=== PATIENT | female | born 1990 | race Hispanic/Latino ===

== ENCOUNTER 2021-05-08 08:05 | Outpatient (CLI) ==
[2021-05-09 09:27] LABS: SARS-CoV-2 PCR by NAA DETECTED (NotDetected)
== END 2021-05-08 08:06 | disposition home or self-care (01) ==
LOC: CSHLAB 08:05
PROVIDERS: ATTEND Family Medicine
DX: U07.1 COVID-19 (principal)
CPT/HCPCS: U0003; U0005

== ENCOUNTER 2021-05-11 08:04 | Day surgery (SDC) | payer OTHER ==
[2021-05-11 08:32] VITALS: BMI 28.8
[2021-05-11] MEDS ORDERED: Acetaminophen 500 MG TAB PO SCH (10:30)
[2021-05-11] MEDS ORDERED: Iron Sucrose Complex 500 MG in Sodium Chloride 0.9% 250 ML 250 ML IVPB SCH (11:00)
== END 2021-05-11 16:30 | disposition home or self-care (01) ==
LOC: CSHLD/OP 08:04
PROVIDERS: ATTEND Emergency Medicine
DX: O98.513 Other viral diseases complicating pregnancy, third trimester (principal); U07.1 COVID-19; O99.013 Anemia complicating pregnancy, third trimester; Z3A.29 29 weeks gestation of pregnancy; Z88.0 Allergy status to penicillin; Z91.040 Latex allergy status; Z91.048 Other nonmedicinal substance allergy status
CPT/HCPCS: J1756; J7050

== ENCOUNTER 2021-07-24 00:10 | Inpatient (IN) | payer OTHER ==
[2021-07-24 00:37] VITALS: BMI 30.9
[2021-07-24] MEDS ORDERED: hydrALAZINE 20 MG/ML VIAL SLOW IVP PRN (00:55)
[2021-07-24 01:06] LABS: Fetal Membranes Rupture RUPTURE DETECTED (No Rupture)
[2021-07-24] MEDS ORDERED: Ondansetron PF 4 MG/2 ML Vial IVP PRN ×3 (01:15→21:22)
[2021-07-24] MEDS ORDERED: Acetaminophen 500 MG TAB PO PRN (01:15)
[2021-07-24] MEDS ORDERED: Promethazine HCl 25 MG/ML VIAL IM PRN ×3 (01:15→21:22)
[2021-07-24 02:06] LABS: Hemoglobin 10.5 g/dL (12.0-15.5); Mean Corpuscular HGB CONC 32.5 g/dL (32.0-36.0); Mean Corpuscular Hemoglobin 23.7 pg (27.0-33.0); Mean Corpuscular Volume 72.9 fl (81.6-98.3); Mean Platelet Volume 11.2 fl (7.4-10.4); Platelet Count 260 10x3/uL (150-450); RBC Distribution Width 20.3 % (11.5-14.5); Red Blood Cell (RBC) Count 4.43 10x6/uL (3.90-5.03); White Blood Cell (WBC) Count 11.1 10x3/uL (3.5-10.5)
[2021-07-24 02:38] LABS: Hep B Surf Ag Non-Reactive S/CO (NonReactive); Syphilis Antibody Nonreactive (Nonreactive); Syphilis Antibody Index 0.03 S/CO (<1.00 Non-Reactive)
[2021-07-24 02:55] LABS: HBSAg Index 0.17 S/CO (0-0.99)
[2021-07-24] MEDS ORDERED: Carboprost 250 MCG/ML AMP IM PRN (04:43)
[2021-07-24] MEDS ORDERED: Ibuprofen 800 MG TAB PO PRN (04:43)
[2021-07-24] MEDS ORDERED: Misoprostol 200 MCG TAB PR PRN (04:43)
[2021-07-24] MEDS ORDERED: Methylergonovine 0.2 MG/ML VIAL IM PRN (04:43)
[2021-07-24] MEDS ORDERED: Lidocaine 1% (PF) 30 ML VIAL SC PRN (04:43)
[2021-07-24] MEDS ORDERED: NS w/ Oxytocin 30 units 500 ML ONE (04:54)
[2021-07-24] MEDS: Lactated Ringer's 1,000 ML IV SCH (05:33)
[2021-07-24] MEDS ORDERED: ePHEDrine Sulfate 50 MG/10 ML VIAL ONE (06:00)
[2021-07-24] MEDS ORDERED: NS w/ Oxytocin 30 units 500 ML IV SCH ×2 (06:00)
[2021-07-24] MEDS ORDERED: Bupivacaine/Epinephrine 0.25% 30 ML VIAL ONE (06:00)
[2021-07-24] MEDS ORDERED: Fentanyl 2 mcg/Bup 0.1% Cadd 100 ML ONE ×2 (08:58→16:36)
[2021-07-24] MEDS ORDERED: Moisturizing Cream (Eucerin) 113 GM JAR TOP PRN ×2 (09:33→21:22)
[2021-07-24] MEDS ORDERED: diphenhydrAMINE 50 MG/ML VIAL IVP PRN ×2 (09:33→21:22)
[2021-07-24] MEDS ORDERED: Lactated Ringer's 500 ML IV PRN (09:33)
[2021-07-24] MEDS ORDERED: ePHEDrine Sulfate 50 MG/10 ML VIAL SLOW IVP PRN (09:33)
[2021-07-24] MEDS ORDERED: Naloxone HCl 0.4 mg/ml Vial IVP PRN ×4 (09:33→21:22)
[2021-07-24] MEDS ORDERED: Communication Order-Pharmacy FS SCH ×2 (09:45→21:30)
[2021-07-24] MEDS ORDERED: Fentanyl 2 mcg/Bupivacaine 0.1% Cassette 100 ML EPIDURAL SCH (09:45)
[2021-07-24] MEDS ORDERED: Bicitra 30 ML UDCUP PO PRN (19:33)
[2021-07-24] MEDS ORDERED: Famotidine/PF 20 mg/2ml Vial SLOW IVP PRN (19:33)
[2021-07-24] MEDS ORDERED: Azithromycin 500 MG VIAL ONE (19:47)
[2021-07-24] MEDS ORDERED: Clindamycin/D5W 900 mg/50 ml Premix Bag ONE (19:48)
[2021-07-24] MEDS ORDERED: Morphine PF 10 MG/10 ML VIAL ONE (20:07)
[2021-07-24] MEDS ORDERED: PHENYLEPHRINE-NS 100 MCG/ML 10 ML SYRINGE ONE (20:07)
[2021-07-24] MEDS ORDERED: Oxytocin 10 UNITS/ML VIAL ONE (20:07)
[2021-07-24] MEDS ORDERED: Ondansetron PF 4 MG/2 ML Vial ONE (20:07)
[2021-07-24] MEDS ORDERED: Dexamethasone 4 mg/ml Vial ONE (20:07)
[2021-07-24] MEDS ORDERED: Clindamycin/D5W 900 MG in Premix Bag 1 BAG IVPB SCH (20:15)
[2021-07-24] MEDS ORDERED: Azithromycin 500 MG in Sodium Chloride 0.9% 250 ML 250 ML IVPB SCH (20:15)
[2021-07-24] MEDS ORDERED: Carboprost 250 MCG/ML AMP ONE (20:25)
[2021-07-24] MEDS ORDERED: Ketorolac Tromethamine 30 MG/ML VIAL IVP PRN (21:22)
[2021-07-24] MEDS ORDERED: Meperidine HCl/PF 25 MG/ML VIAL SLOW IVP PRN (21:22)
[2021-07-24] MEDS ORDERED: L&D-Morphine 4 MG/ML VIAL SLOW IVP PRN (21:22)
[2021-07-24] MEDS ORDERED: Fentanyl 100 MCG/2 ML VIAL SLOW IVP PRN (21:22)
[2021-07-24] MEDS ORDERED: Ondansetron HCl/PF 4 MG/2 ML Vial IVP PRN (21:22)
[2021-07-24] MEDS ORDERED: Promethazine HCl 25 MG SUPP PR PRN (21:22)
[2021-07-24] MEDS ORDERED: Naloxone HCl 0.4 mg/ml Vial IV PRN (21:22)
[2021-07-24] MEDS ORDERED: Ketorolac Tromethamine 30 MG/ML VIAL IVP SCH (21:30)
[2021-07-25] MEDS ORDERED: Boostrix 0.5 ML (Tdap) VIAL IM ONE (00:12)
[2021-07-25] MEDS ORDERED: Measles/Mumps/Rubella 10 MCG/0.5 ML VIAL SC ONE (00:12)
[2021-07-25] MEDS ORDERED: Varicella virus, LIVE 0.5 ML VIAL SC ONE (00:12)
[2021-07-25] MEDS ORDERED: hydrALAZINE 20 MG/ML VIAL SLOW IVP PRN (00:12)
[2021-07-25] MEDS ORDERED: Misoprostol 200 MCG TAB PR PRN (00:12)
[2021-07-25] MEDS ORDERED: Lanolin Ointment 7 GM TUBE TOP PRN (00:12)
[2021-07-25] MEDS ORDERED: Docusate 100 MG CAP PO SCH (00:30)
[2021-07-25] MEDS ORDERED: Ferrous Sulfate 325 MG TAB PO SCH (00:30)
[2021-07-25] MEDS: Lactated Ringer's 1,000 ML IV SCH (02:12)
[2021-07-25 05:11] LABS: Hemoglobin 10.4 g/dL (12.0-15.5); Mean Corpuscular HGB CONC 32.9 g/dL (32.0-36.0); Mean Corpuscular Hemoglobin 23.9 pg (27.0-33.0); Mean Corpuscular Volume 72.6 fl (81.6-98.3); Mean Platelet Volume 11.1 fl (7.4-10.4); Platelet Count 240 10x3/uL (150-450); RBC Distribution Width 19.6 % (11.5-14.5); Red Blood Cell (RBC) Count 4.35 10x6/uL (3.90-5.03); White Blood Cell (WBC) Count 17.2 10x3/uL (3.5-10.5)
[2021-07-25] MEDS ORDERED: Ibuprofen 800 MG TAB PO SCH (06:00)
[2021-07-25] MEDS: Ferrous Sulfate 325 MG TAB PO SCH ×2 (07:31→20:06)
[2021-07-25] MEDS: Acetaminophen 325 MG TAB PO PRN ×2 (08:25→17:00)
[2021-07-25] MEDS: Prenatal Vitamin 1 TAB PO SCH (08:25)
[2021-07-25] MEDS: Docusate 100 MG CAP PO SCH ×2 (08:25→21:51)
[2021-07-25] MEDS: Ibuprofen 800 MG TAB PO SCH (21:51)
[2021-07-26] MEDS: Acetaminophen 325 MG TAB PO PRN ×4 (01:03→17:27)
[2021-07-26] MEDS: Ibuprofen 800 MG TAB PO SCH ×2 (05:39→13:54)
[2021-07-26] MEDS: Ferrous Sulfate 325 MG TAB PO SCH (08:03)
[2021-07-26] MEDS: Prenatal Vitamin 1 TAB PO SCH (08:38)
[2021-07-26] MEDS: Docusate 100 MG CAP PO SCH (08:38)
[2021-07-26 18:11] VITALS: BP 115/57; TEMP 99.2
== END 2021-07-26 19:15 | disposition home or self-care (01) | DRG 787 ==
LOC: CSHLD/OP 00:10 → CSHLD 04:50 → CSHPP 07-25
PROVIDERS: ADMIT Obstetrics & Gynecology; ATTEND Obstetrics & Gynecology
PROC: 10D00Z1 Extraction of Products of Conception, Low, Open Approach (ICD-10-PCS; principal; 2021-07-24)
PROC: 10H07YZ Insertion of Other Device into Products of Conception, Via Natural or Artificial Opening (ICD-10-PCS; 2021-07-24)
DX: O42.02 Full-term premature rupture of membranes, onset of labor within 24 hours of rupture (principal); O99.354 Diseases of the nervous system complicating childbirth; Z3A.40 40 weeks gestation of pregnancy; Z37.0 Single live birth; D64.9 Anemia, unspecified; O99.02 Anemia complicating childbirth; Z86.16 Personal history of COVID-19; G43.909 Migraine, unspecified, not intractable, without status migrainosus; Z88.0 Allergy status to penicillin; Z91.040 Latex allergy status; O76 Abnormality in fetal heart rate and rhythm complicating labor and delivery; O32.8XX0 Maternal care for other malpresentation of fetus, not applicable or unspecified; O69.81X0 Labor and delivery complicated by cord around neck, without compression, not applicable or unspecified
CPT/HCPCS: 36415; 51702; 59412; 76815; 82805; 84112; 85027; 86780; 86850; 86900; 86901; 87340; 99285; J1100; J2274; J2405; J2590; J7120; U0003; U0005